=== PATIENT | male | born 1940 | race Caucasian/White ===

== ENCOUNTER 2024-01-10 00:33 | Inpatient (IN) ==
[2024-01-10 01:52] LABS: Creatinine, Serum 1.29 mg/dL (0.67-1.17); Potassium 4.8 mmol/L (3.5-5.0)
[2024-01-10] MEDS: Iohexol 350 (CONTRAST) 500 ML MDV IV ONE (04:01)
[2024-01-10] MEDS ORDERED: Dextrose 50% Syringe 50 ml 25 GM/50 ML SYRINGE IV PUSH PRN (04:40)
[2024-01-10] MEDS ORDERED: Iohexol 350 (CONTRAST) 500 ML MDV IV SCH (05:00)
[2024-01-10] MEDS: Albuterol HFA INHALER 8 gm MDI INH PRN (05:50)
[2024-01-10] MEDS: Heparin 5000 UNITS/ML 1 mL VIAL SUBCUT SCH (05:51)
[2024-01-10 06:01] LABS: ABS Lymphocytes 0.3 10^3/uL (1.0-4.8); ABS Monocytes 0.1 10^3/uL (0.0-1.1); ABS Neutrophils 3.9 10^3/uL (1.5-7.6); ABS Nucleated RBC 0.01 10^3/ul; Eosinophil % 0.2 %; Hematocrit 27.6 % (38-53); Lymphocyte % 6.3 %; Mean Corpuscular Hemoglobin 25.7 pg (27-33); Mean Corpuscular Hgb Conc 32.7 g/dL (31-36); Mean Corpuscular Volume 78.7 fL (80-97); Nucleated Red Blood Cells % 0.1 %/100WBC (0.0-0.8); Platelet Count 297 10^3/uL (150-450); Red Blood Count 3.51 10^6/uL (4.06-5.63); Red Cell Distribution Width 15.3 % (12-17); White Blood Count 4.3 10^3/uL (3.6-10.2)
[2024-01-10 06:39] LABS: ALT 15 U/L (7-52); AST 18 U/L (13-39); Albumin 3.8 g/dL (3.2-5.2); Albumin/Globulin Ratio 1.4 (1-3); Alkaline Phosphatase 91 U/L (35-149); Anion Gap 7 mmol/L (2-16); Blood Urea Nitrogen 29 mg/dL (6-24); CO2 Carbon Dioxide 27 mmol/L (22-32); Calcium 9.5 mg/dL (8.6-10.3); Chloride 93 mmol/L (101-111); Creatinine, Serum 1.22 mg/dL (0.67-1.17); Globulin 2.8 g/dL (2-4); Glucose 408 mg/dL (70-100); Magnesium 1.3 mg/dL (1.9-2.7); Sodium 127 mmol/L (135-145); Total Bilirubin 0.4 mg/dL (0.2-1.0); Total Protein 6.6 g/dL (6.4-8.9); eGFR CKD-EPI 58.8 (>60)
[2024-01-10] MEDS ORDERED: Metoprolol Tartrate 5 mg VIAL 5 ml VIAL (1 mg/ml) IV PRN (08:14)
[2024-01-10] MEDS: Furosemide 20 mg/2 ml IV VIAL IV SLOW PU ONE ×2 (08:47→15:04)
[2024-01-10] MEDS: Albuterol 2.5mg/3 ml (0.083%) NEB.SOLN INH SCH ×2 (08:50→17:15)
[2024-01-10] MEDS ORDERED: CMCS: FLUTICAS/UMECLI/VILANT 100-62.5-25 MDI (NF) INH SCH (09:00)
[2024-01-10] MEDS ORDERED: Albuterol 2.5mg/3 ml (0.083%) NEB.SOLN INH PRN (09:18)
[2024-01-10 09:29] LABS: % Iron Saturation 5 % (15-55); .Transferrin 317 mg/dL (203-362); Iron < 20 ug/dL (50-212); Total Iron Binding Capacity 444 mcg/dL (250-450); Transferrin 317 mg/dL (203-362); Unsaturated Iron Binding 424 ug/dL
[2024-01-10 09:49] LABS: Ferritin 9.4 ng/mL (24-336)
[2024-01-10] MEDS: Magnesium Sulf 4 GM/100 ML IV 4,000 MG/100 ML BAG IVPB ONE (10:47)
[2024-01-10] MEDS: Magnesium Sulfate 2 gm BAG 2 GM/50 ML BAG IVPB ONE (11:39)
[2024-01-10] MEDS: Ferric Gluconate IV 250 MG in NS 0.9% 250 ml 200 ML IVPB SCH (12:31)
[2024-01-10] MEDS ORDERED: Albuterol HFA INHALER 8 gm MDI INH SCH (13:00)
[2024-01-10] MEDS ORDERED: Sulfur Hexaflouride MICROSPHR 25 MG VIAL ONE (14:32)
[2024-01-10 18:43] LABS: Calcium 9.5 mg/dL (8.6-10.3); Creatinine, Serum 1.21 mg/dL (0.67-1.17); Magnesium 2.3 mg/dL (1.9-2.7); Potassium 4.8 mmol/L (3.5-5.0); eGFR CKD-EPI 59.4 (>60)
[2024-01-10] MEDS: Insulin GLARGINE 100 un/ml 10 ml VIAL SUBCUT SCH (20:05)
[2024-01-10] MEDS: Furosemide 20 mg/2 ml IV VIAL IV SLOW PU SCH (20:05)
[2024-01-11] MEDS ORDERED: Dextrose 50% Syringe 50 ml 25 GM/50 ML SYRINGE IV PUSH PRN (06:28)
[2024-01-11 06:46] LABS: ABS Basophils 0.1 10^3/uL (0.0-0.1); ABS Eosinophils 0.2 10^3/uL (0.0-0.5); ABS Lymphocytes 0.8 10^3/uL (1.0-4.8); ABS Monocytes 0.7 10^3/uL (0.0-1.1); ABS Neutrophils 3.7 10^3/uL (1.5-7.6); ABS Nucleated RBC 0.01 10^3/ul; Eosinophil % 4.1 %; Hematocrit 27.9 % (38-53); Hemoglobin 8.6 g/dL (13.2-16.3); Lymphocyte % 15.2 %; Mean Corpuscular Hemoglobin 25.8 pg (27-33); Nucleated Red Blood Cells % 0.1 %/100WBC (0.0-0.8); Platelet Count 297 10^3/uL (150-450); Red Blood Count 3.35 10^6/uL (4.06-5.63); Red Cell Distribution Width 15.5 % (12-17); White Blood Count 5.5 10^3/uL (3.6-10.2)
[2024-01-11 09:38] LABS: Calcium 8.8 mg/dL (8.6-10.3); Creatinine, Serum 1.33 mg/dL (0.67-1.17); Magnesium 2.1 mg/dL (1.9-2.7); Potassium 4.4 mmol/L (3.5-5.0)
[2024-01-11 11:36] LABS: TSH Ultra Thyroid Stim Horm 1.12 mcIU/mL (0.34-5.60)
[2024-01-11 12:50] LABS: INR 1.33 (0.83-1.13)
[2024-01-11] MEDS: Albuterol 2.5mg/3 ml (0.083%) NEB.SOLN INH SCH (13:07)
[2024-01-11] MEDS: Furosemide 20 mg/2 ml IV VIAL IV SLOW PU ONE ×2 (14:06→16:58)
[2024-01-11 14:08] LABS: High Sensitivity Troponin 1 Hr 17 pg/mL (<20)
[2024-01-11] MEDS: Insulin GLARGINE 100 un/ml 10 ml VIAL SUBCUT SCH (21:15)
[2024-01-12 05:37] LABS: ABS Basophils 0.1 10^3/uL (0.0-0.1); ABS Eosinophils 0.4 10^3/uL (0.0-0.5); ABS Lymphocytes 0.8 10^3/uL (1.0-4.8); ABS Monocytes 0.8 10^3/uL (0.0-1.1); ABS Neutrophils 3.8 10^3/uL (1.5-7.6); ABS Nucleated RBC 0.01 10^3/ul; Eosinophil % 6.3 %; Hematocrit 27.8 % (38-53); Hemoglobin 9.1 g/dL (13.2-16.3); Lymphocyte % 14.2 %; Mean Corpuscular Hemoglobin 25.4 pg (27-33); Mean Corpuscular Hgb Conc 32.6 g/dL (31-36); Mean Corpuscular Volume 77.8 fL (80-97); Mean Platelet Volume 7.8 fL (7.5-11.2); Nucleated Red Blood Cells % 0.1 %/100WBC (0.0-0.8); Platelet Count 359 10^3/uL (150-450); Red Blood Count 3.57 10^6/uL (4.06-5.63); White Blood Count 5.9 10^3/uL (3.6-10.2)
[2024-01-12 06:59] LABS: Calcium 8.9 mg/dL (8.6-10.3); Creatinine, Serum 1.3 mg/dL (0.67-1.17); Magnesium 2.1 mg/dL (1.9-2.7); Potassium 4.5 mmol/L (3.5-5.0); eGFR CKD-EPI 54.5 (>60)
[2024-01-12] MEDS ORDERED: Heparin 5000 UNITS/ML 1 mL VIAL IV SCH (10:00)
[2024-01-12 10:02] LABS: ABS Basophils 0.1 10^3/uL (0.0-0.1); ABS Eosinophils 0.3 10^3/uL (0.0-0.5); ABS Lymphocytes 0.6 10^3/uL (1.0-4.8); ABS Monocytes 0.7 10^3/uL (0.0-1.1); ABS Neutrophils 3.1 10^3/uL (1.5-7.6); ABS Nucleated RBC 0.01 10^3/ul; Eosinophil % 6.4 %; Hematocrit 27.3 % (38-53); Lymphocyte % 12.6 %; Mean Corpuscular Hemoglobin 25.8 pg (27-33); Mean Corpuscular Hgb Conc 32.8 g/dL (31-36); Mean Corpuscular Volume 78.7 fL (80-97); Mean Platelet Volume 7.3 fL (7.5-11.2); Nucleated Red Blood Cells % 0.2 %/100WBC (0.0-0.8); Platelet Count 345 10^3/uL (150-450); Red Blood Count 3.47 10^6/uL (4.06-5.63); Red Cell Distribution Width 15.5 % (12-17); White Blood Count 4.8 10^3/uL (3.6-10.2)
[2024-01-12] MEDS: Furosemide 40 mg/4 ml IV VIAL IV SLOW PU ONE (10:26)
[2024-01-12 10:39] LABS: Creatinine, Serum 1.21 mg/dL (0.67-1.17); eGFR CKD-EPI 59.4 (>60)
[2024-01-12 18:11] LABS: Hepatitis B Surface Ab Not Immune (Immune)
[2024-01-12 19:22] LABS: Hepatitis B Surface Antigen Nonreactive (Nonreactive)
[2024-01-12 19:27] LABS: Hepatitis B Core IgM Nonreactive (Nonreactive)
[2024-01-12] MEDS ORDERED: Heparin DRIP 25,000 UNITS BAG 25,000 UNITS/250 ML BAG IV SCH (21:00)
[2024-01-12] MEDS: Insulin GLARGINE 100 un/ml 10 ml VIAL SUBCUT SCH (22:04)
[2024-01-12] MEDS: Enoxaparin 100 MG/ML SYR SUBCUT SCH (22:04)
[2024-01-13] MEDS: Iodixanol (CONTRAST) 320 MG/ML 100 ML SDV IV ONE (03:59)
[2024-01-13 05:41] LABS: ABS Basophils 0.1 10^3/uL (0.0-0.1); ABS Eosinophils 0.5 10^3/uL (0.0-0.5); ABS Lymphocytes 0.9 10^3/uL (1.0-4.8); ABS Monocytes 0.9 10^3/uL (0.0-1.1); ABS Neutrophils 3.6 10^3/uL (1.5-7.6); Hematocrit 27.7 % (38-53); Lymphocyte % 15.7 %; Mean Corpuscular Hemoglobin 25.7 pg (27-33); Mean Corpuscular Hgb Conc 32.5 g/dL (31-36); Mean Corpuscular Volume 79.2 fL (80-97); Platelet Count 346 10^3/uL (150-450); Red Cell Distribution Width 15.7 % (12-17)
[2024-01-13 06:03] LABS: Calcium 8.4 mg/dL (8.6-10.3); Creatinine, Serum 1.14 mg/dL (0.67-1.17); Potassium 4.1 mmol/L (3.5-5.0); eGFR CKD-EPI 63.8 (>60)
[2024-01-13] MEDS: Albuterol 2.5mg/3 ml (0.083%) NEB.SOLN INH PRN (16:08)
[2024-01-14 06:39] LABS: ABS Basophils 0.1 10^3/uL (0.0-0.1); ABS Eosinophils 0.5 10^3/uL (0.0-0.5); ABS Lymphocytes 0.8 10^3/uL (1.0-4.8); ABS Monocytes 0.8 10^3/uL (0.0-1.1); ABS Neutrophils 3.7 10^3/uL (1.5-7.6); Eosinophil % 7.6 %; Hematocrit 29.2 % (38-53); Hemoglobin 9.4 g/dL (13.2-16.3); Lymphocyte % 14.2 %; Mean Corpuscular Hemoglobin 25.7 pg (27-33); Mean Corpuscular Hgb Conc 32.2 g/dL (31-36); Mean Corpuscular Volume 79.6 fL (80-97); Mean Platelet Volume 7.6 fL (7.5-11.2); Nucleated Red Blood Cells % 0.1 %/100WBC (0.0-0.8); Platelet Count 361 10^3/uL (150-450); Red Blood Count 3.66 10^6/uL (4.06-5.63); Red Cell Distribution Width 15.3 % (12-17); White Blood Count 5.9 10^3/uL (3.6-10.2)
[2024-01-14 06:58] LABS: Calcium 8.6 mg/dL (8.6-10.3); Creatinine, Serum 1.1 mg/dL (0.67-1.17); Magnesium 2.1 mg/dL (1.9-2.7); eGFR CKD-EPI 66.6 (>60)
[2024-01-14 13:54] VITALS: BP 118/57
[2024-01-14 16:54] LABS: Alpha 1 Antitrypsin A1A 134 mg/dL (100 - 190)
[2024-01-15 16:44] LABS: Mitochondria M2 Antibody <0.1 U
== END 2024-01-14 15:30 | disposition home or self-care (01) | DRG 291 ==
LOC: EDHOLD 00:33 → ED 00:33 → SUATTDRO 02:13 → MEDTELE 08:53
PROVIDERS: ADMIT Internal Medicine; ATTEND Hospitalist